=== PATIENT | male | born 1975 | race African-American/Black ===

== ENCOUNTER 2019-02-06 15:59 | Observation (INO) ==
[2019-02-06] MEDS ORDERED: ASPIRIN PR ONE (16:46)
[2019-02-06] MEDS ORDERED: ASPIRIN PO ONE (16:46)
--- NOTE | 2019-02-06 17:01 | EKG Report ---
Test Performed on : 02/06/2019 4:50:50 PM Test Reason : BP Blood Pressure : / mmHG Vent. Rate : 083 BPM Atrial Rate : 083 BPM P-R Int : 152 ms QRS Dur : 090 ms QT Int : 366 ms P-R-T Axes : 058 -30 044 degrees QTc Int : 430 ms Normal sinus rhythm. Left axis deviation Nonspecific T wave abnormality Abnormal ECG No previous ECGs available Unconfirmed Result
[2019-02-06 17:05] LABS: BASO# 0.01 X1000 (0.0-0.2); BASO% 0.2 % (0.0-0.8); EOS# 0.12 X1000 (0.0-0.7); EOS% 2.3 % (0.0-10.0); HEMATOCRIT 42.3 % (42.0-52.0); LYMPH# 1.32 X1000 (1.2-3.4); LYMPH% 25.3 % (20.5-51.1); MCH 30.6 PG (27-31); MCHC 35.5 g/dL (33-37); MCV 86.3 FL (81-99); MONO# 0.46 X1000 (0.11-0.59); MONO% 8.8 % (1.7-9.3); MPV 10.7 FL (7.4-10.4); NEUT% 63.4 % (42.2-75.2); PLT 199 X1000 (130-400); RDW 13.2 % (11.5-14.5); WBC 5.21 X1000 (4.8-10.8)
--- NOTE | 2019-02-06 17:05 | Diag Imaging Result Doc PS360 ---
EXAM: CHEST-2 VIEWS INDICATION: CP TECHNIQUE: 2 views COMPARISON: None. FINDINGS: The lungs are grossly clear. There is no discrete pleural fluid collection or pneumothorax. The cardiomediastinal silhouette and central vasculature are grossly unremarkable. IMPRESSION: No evidence of acute pathology by plain radiograph. Electronically signed by Yuriy Mora 02/06/2019 5:03 PM
[2019-02-06 17:21] LABS: AGAP 13; ALB/GLOB RATIO 1.6; ALBUMIN 4.3 g/dL (3.5-5.0); ALKALINE PHOSPHATASE 72 U/L (32-122); BUN 11 mg/dL (8-22); CALCIUM 9.2 mg/dL (8.8-10.2); CHLORIDE 100 mmol/L (98-107); COSMO 275; CREATININE 0.9 mg/dL (0.7-1.2); ESTIMATED GFR > 60; GLUCOSE 89 mg/dL (70-104); GOT 36 U/L (10-34); GPT 33 U/L (10-44); POTASSIUM 3.9 mmol/L (3.5-5.1); SODIUM 138 mmol/L (136-145); TCO2 25 mmol/L (25-35); TOTAL BILIRUBIN 0.72 mg/dL (0.20-1.00)
[2019-02-06 17:30] LABS: CK PROFILE 498 U/L (24-204)
[2019-02-06 17:47] LABS: CK INDEX 1.1 (0.0-2.5); CK-MB 5.37 ng/mL (0.0-5.0)
[2019-02-06 17:57] LABS: INR 1.72; PROTIME 20.6 Seconds (11.0-16.0)
[2019-02-06 17:58] LABS: PTT 25.6 Seconds (22.3-41.8)
--- NOTE | 2019-02-06 19:01 | ED EKG INTERP ---
This chart was entered by Yaquelin Zapata Scribe, acting as scribe for Gallo Rodriguez MD. EKG Interpretation - EKG Time of EKG reading by physician:: 17:10 EKG Read and Signed by:: Gallo Rodriguez EKG Interpretation (*Must complete 3 of following elements*): Abnormal (NSSTTWINSR LAD) Rate: 83 Rhythm: NSR [place]: normal (T) Attestation - Physician/ MELY Attestation The physician spent face to face time with patient:: No Advanced Practice Provider documentation review:: Supervising physician onsite and consulted in the evaluation and care of this patient. The physician did not have a face to face encounter with the patient. This chart was documented by the indicated scribe, (Yaquelin Zapata, Beryl) and accurately reflects the services I performed and decisions made by Jennifer malagon Kent A., MD, as attested by the provider's signature.
[2019-02-06] MEDS ORDERED: APRESOLINE IV ONE (20:19)
--- NOTE | 2019-02-06 20:26 | PROVIDER DOCUMENTATION ---
This chart was entered by Yaquelin Zapata Scribe, acting as scribe for Esequiel Ruvalcaba MD. HPI-Chest Pain - General Chief Complaint: B/P Problems Stated Complaint: BP HIGH Time Seen by Provider: 02/06/19 19:41 Source: patient Allergies/Adverse Reactions: Patient Allergies Allergy/AdvReac Type Severity Reaction Status Date / Time No Known Allergies Allergy Verified 09/11/13 01:02 Home Medications: Home Medication List Medication Instructions Recorded Confirmed Last Taken Type Cyclobenzaprine [Flexeril] 10 mg PO TID #10 tablet 07/09/16 Unknown Rx Famotidine [Pepcid] 20 mg PO DAILY #20 tablet 07/09/16 Unknown Rx Ketorolac [Toradol] 10 mg PO Q6H PRN PRN #20 tablet 07/09/16 Unknown Rx - History of Present Illness-CP Nature of Presenting Problem: pt is a 43 yr old male presenting with 1 month complaint of intermittent chest pain and shortness of breath. pt admits pain onset during moderate exertion, relieved with rest. pt denies ay prior cardiac hx. admits HTN and off meds x 1- 2yrs. pt seen at urgent care prior to arrival, sent here for further eval. pt denies any pain on exam Location: reports: central Chest Pain Radiation: reports: no radiation Quality of Pain: reports: pressure, sharp Severity in ED: moderate Onset/Duration: other (1 month) Timing: intermittent, getting worse Context/Activities at Onset: reports: moderate activity Modifying Factors: improves with: exercise (moderate activity induces chest pain), rest (relieves pain) Associated Symptoms: reports: shortness of breath. denies: diaphoresis, dizziness, fatigue, nausea, vomiting Nitro Today/Relief: no nitro taken today Aspirin Treatment Today: no aspirin today Prior Chest Pain/Cardiac Workup: reports: no prior chest pain, no prior cardiac workup Recently Seen Here or By Another Healthcare Provider: Yes (seen at urgent care [employer]) Review of Systems - Adult - REVIEW OF SYSTEMS - ADULT Constitutional: denies: fever, fatique Eyes: denies: blurred vision, double vision Ears, Nose, Mouth & Throat: reports: no symptoms reported Cardiovascular: reports: chest pain. denies: palpitations, syncope Respiratory: reports: dyspnea on exertion, shortness of breath. denies: cough Gastrointestinal: reports: frequent heartburn. denies: nausea, vomiting Genitourinary: reports: no symptoms reported Musculoskeletal: reports: no symptoms reported Integumentary: reports: no symptoms reported Neurological: denies: dizziness/vertigo, headache/migraines, syncope Psychiatric: reports: no symptoms reported Endocrine: reports: no symptoms reported Hematologic/Lymphatic: reports: no symptoms reported Allergic/Immunologic: reports: no symptoms reported All Other Systems: Reviewed and Negative Past History - Adult - PAST MEDICAL HISTORY-ADULT Review of Records: reports: Old Records Reviewed, Nursing Assessment Review, Medications Reviewed, Social history reviewed & non-contributory. Major Childhood Illnesses: reports: denies history Cardiovascular: reports: HTN, hyperlipidemia Respiratory: reports: denies history Gastrointestinal: reports: denies history Obstetrical/Gynecological: reports: denies history Genitourinary: reports: denies history Musculoskeletal: reports: denies history Neurological: reports: denies history Endocrine/Immune: reports: denies history Other Conditions: reports: denies history - PRIOR SURGERIES/PROCEDURES Surgical/Procedure History: reports: reviewed, not pertinent - PRIOR HOSPITALIZATIONS Prior Hospitalizations: reports: for other non-related - IMMUNIZATION STATUS Childhood Immunizations: See Nurse Assessment Flu Vaccine: See Nurse Assessment - FAMILY HISTORY Family History: reviewed, not pertinent - SOCIAL HISTORY Smoking: denies Substance Use: denies Living Situation: family Physical Exam-General - PHYSICAL EXAM-ADULT Initial Vital Signs Reviewed: Yes - CONSTITUTIONAL General Appearance: appears well, alert, no apparent distress - EYES Eyes: PERRL/EOMI - HEAD, EARS, NOSE, MOUTH & THROAT HENMT: normocephalic/atraumatic, moist mucous membranes - NECK Neck: non-tender, full range of motion, supple, normal inspection - RESPIRATORY Respiratory: chest non-tender, lungs clear, normal breath sounds - CARDIOVASCULAR Cardiovascular: normal peripheral pulses, regular rate, rhythm, no edema - GASTROINTESTINAL (ABDOMEN) Abdominal Exam: normal bowel sounds, non tender, soft - LYMPHATIC Lymphatic: no adenopathy - MUSCULOSKELETAL Back Exam: normal inspection, no CVA tenderness, no vertebral tenderness Extremity: normal range of motion, non-tender, normal gait, normal inspection - SKIN Integumentary: normal color, normal turgor, warm/dry - NEUROLOGIC Neurologic: grossly normal, no motor/sensory deficits - PSYCHIATRIC Psych/Mental Status: normal mood/affect Progress - PLAN OF CARE/RESULTS Progress/Plan/Lab Results: Vital Signs - 8 hr 12/04/19 16:19 Temperature 98.4 F Pulse Rate 88 Respiratory Rate 16 Blood Pressure 215/121 O2 Sat by Pulse Oximetry 97 Laboratory Results - last 24 hr 02/06/19 02/06/19 02/06/19 16:50 16:50 16:50 WBC 5.21 RBC 4.90 Hgb 15.0 Hct 42.3 MCV 86.3 MCH 30.6 MCHC 35.5 RDW Std Deviation 13.2 Plt Count 199 MPV 10.7 H Immature Gran % (Auto) 0.0 Neut % (Auto) 63.4 Lymph % (Auto) 25.3 [place] % (Auto) 8.8 Eos % (Auto) 2.3 Baso % (Auto) 0.2 Immature Gran # (Auto) 0.00 Neut # (Auto) 3.30 Lymph # (Auto) 1.32 [place] # (Auto) 0.46 Eos # (Auto) 0.12 Baso # (Auto) 0.01 PT INR PTT (Actin FS) Sodium 138 Potassium 3.9 Chloride 100 Carbon Dioxide 25 Anion Gap 13 BUN 11 Creatinine 0.9 Estimated GFR/1.73 m2 > 60 BUN/Creatinine Ratio 12 Glucose 89 Calculated Osmolality 275 Calcium 9.2 Total Bilirubin 0.72 AST 36 H ALT 33 Alkaline Phosphatase 72 Creatine Kinase 498 H Creatine Kinase Index 1.1 CK-MB (CK-2) 5.37 H Troponin T [id number] Pept 134 H Total Protein 7.0 Albumin 4.3 Globulin 2.7 Albumin/Globulin Ratio 1.6 02/06/19 02/06/19 16:50 16:50 WBC RBC Hgb Hct MCV MCH MCHC RDW Std Deviation Plt Count MPV Immature Gran % (Auto) Neut % (Auto) Lymph % (Auto) [place] % (Auto) Eos % (Auto) Baso % (Auto) Immature Gran # (Auto) Neut # (Auto) Lymph # (Auto) [place] # (Auto) Eos # (Auto) Baso # (Auto) PT 20.6 H INR 1.72 PTT (Actin FS) 25.6 Sodium Potassium Chloride Carbon Dioxide Anion Gap BUN Creatinine Estimated GFR/1.73 m2 BUN/Creatinine Ratio Glucose Calculated Osmolality Calcium Total Bilirubin AST ALT Alkaline Phosphatase Creatine Kinase Creatine Kinase Index CK-MB (CK-2) Troponin T < 0.010 [id number]-[id number] Pept Total Protein Albumin Globulin Albumin/Globulin Ratio Orders Category Date Time Status Cardiac Monitoring DIRECTED Care 02/06/19 16:46 Active Oxygen Therapy- ED Nursing DIRECTED Care 02/06/19 16:46 Active Saline Loc NOW Care 02/06/19 16:46 Active CHEST-2 VIEWS [RAD] Stat Exams 02/06/19 16:46 Completed CBC WITH ELECTRONIC DIFF [HEME] Stat Lab 02/06/19 16:50 Completed CK PROFILE [SP CHEM] Stat Lab 02/06/19 16:50 Completed COMPREHENSIVE METABOLIC PANEL [CHEM] Stat Lab 02/06/19 16:50 Completed PRO B-NATRIURETIC PEPTIDE Stat Lab 02/06/19 16:50 Completed PROTIME WITH INR [COAG] Stat Lab 02/06/19 16:50 Completed PTT [COAG] Stat Lab 02/06/19 16:50 Completed TROPONIN T Stat Lab 02/06/19 16:50 Completed Aspirin Med 02/06/19 16:46 Discontinued 300 mg [place] NOW ONE Aspirin Med 02/06/19 16:46 Discontinued 325 mg PO NOW ONE Hydralazine [Apresoline] Med 02/06/19 20:19 Discontinued 10 mg IV NOW ONE CP/SOB/Palp >45 yrs of Age Stat Oth 02/06/19 16:46 Ordered EKG [EKG] Stat Ther 02/06/19 16:46 Draft Result Diagrams: 02/06/19 16:50 02/06/19 16:50 - XRAY 1 XRAY Study: Chest Impression: Normal (Signed EXAM: CHEST-2 VIEWS INDICATION: CP TECHNIQUE: 2 views COMPARISON: None. FINDINGS: The lungs are grossly clear. There is no discrete pleural fluid collection or pneumothorax. The cardiomediastinal silhouette and central vasculature are grossly unremarkable. IMPRESSION: No evidence of acute pathology by plain radiograph. Electronically signed by Yuriy Mora 02/06/2019 5:03 PM 02/06/191702 Interpreting Physician: Yuriy Mora MD Dictated Date/Time: 02/06/191702 cc: Gallo Rodriguez MD; Meredith Kim MD) Departure - Departure Date of Disposition Decision: 02/06/19 Time of Disposition Decision: 20:24 DIAGNOSIS: Chest pain Qualifiers: Chest pain type: other chest pain Qualified Code(s): R07.89 - Other chest pain; R07.8 - Other chest pain Disposition: ADMITTED INPATIENT 09 Certified Medical Emergency: Emergent Condition: Stable Referrals and Follow-Ups: Meredith Kim MD [Primary Care Provider] - - Critical Care Note This patient required my direct & personal management of CC.: No Attestation - Physician/ MELY Attestation Patient care was provided by Advanced Practice Provider:: No The physician spent face to face time with patient:: Yes Advanced Practice Provider documentation review:: Supervising physician onsite and consulted in the evaluation and care of this patient. The physician did have a face to face encounter with the patient. This chart was documented by the indicated scribe, (Yaquelin Zapata Scribe) and accurately reflects the services I performed and decisions made by me, sEequiel Ruvalcaba MD, as attested by the provider's signature.
[2019-02-06] MEDS ORDERED: CATAPRES PO ONE (22:08)
[2019-02-07] MEDS ORDERED: LABETALOL IV ONE (01:35)
[2019-02-07] MEDS ORDERED: TYLENOL PO PRN (01:44)
[2019-02-07] MEDS ORDERED: ZOFRAN IV PRN (01:44)
[2019-02-07] MEDS ORDERED: ASPIRIN ONE (02:03)
[2019-02-07 02:58] LABS: CK-MB 3.86 ng/mL (0.0-5.0)
[2019-02-07] MEDS: LABETALOL IV PRN ×2 (03:45→11:05)
[2019-02-07 04:01] LABS: URINE SOURCE CLEAN CATCH
[2019-02-07 04:06] LABS: BILIRUBIN URINE NEGATIVE (NEGATIVE); BLOOD URINE NEGATIVE (NEGATIVE); COLOR YELLOW; GLUCOSE URINE NEGATIVE (NEGATIVE); KETONE URINE NEGATIVE (NEGATIVE); LEUKOCYTES URINE NEGATIVE (NEGATIVE); NITRITE URINE NEGATIVE (NEGATIVE); PH URINE 7.5; PROTEIN URINE 30 mg/dL (NEGATIVE); SP GRAVITY URINE 1.026; TURBIDITY URINE TURBID (CLEAR); UR EPITHELIAL CELLS <10 /HPF (<10); URINE BACTERIA NEGATIVE /HPF; URINE RBC <10 /HPF (<10); URINE WBC <10 /HPF (<10); UROBILINOGEN URINE 2 mg/dL (NORMAL)
[2019-02-07 04:15] LABS: UR AMPHETAMINES QUAL NONE DETECTED (NONE DETECT); UR BARBITUATES QUAL NONE DETECTED (NONE DETECT); UR BENZODIAZEPIN QUAL NONE DETECTED (NONE DETECT); UR CANNABINOIDS QUAL NONE DETECTED (NONE DETECT); UR COCAINE QUAL NONE DETECTED (NONE DETECT); UR METHADONE QUAL NONE DETECTED (NONE DETECT); UR OPIATES QUAL NONE DETECTED (NONE DETECT); UR OXYCODONE QUAL NONE DETECTED (NONE DETECT); UR PCP QUAL NONE DETECTED (NONE DETECT)
[2019-02-07 06:02] LABS: BASO# 0.01 X1000 (0.0-0.2); BASO% 0.2 % (0.0-0.8); EOS# 0.08 X1000 (0.0-0.7); EOS% 1.9 % (0.0-10.0); HEMATOCRIT 41.8 % (42.0-52.0); HEMOGLOBIN 14.6 g/dL (14.0-18.0); LYMPH# 1.31 X1000 (1.2-3.4); LYMPH% 30.3 % (20.5-51.1); MCH 30.5 PG (27-31); MCHC 34.9 g/dL (33-37); MCV 87.3 FL (81-99); MONO# 0.42 X1000 (0.11-0.59); MONO% 9.7 % (1.7-9.3); MPV 10.8 FL (7.4-10.4); NEUT% 57.9 % (42.2-75.2); PLT 193 X1000 (130-400); RBC 4.79 XMIL (4.7-6.1); RDW 13.3 % (11.5-14.5); WBC 4.32 X1000 (4.8-10.8)
[2019-02-07 06:03] LABS: INR 1.91; PROTIME 22.3 Seconds (11.0-16.0)
[2019-02-07 06:30] LABS: AGAP 13; BUN 13 mg/dL (8-22); CALCIUM 9.1 mg/dL (8.8-10.2); CHLORIDE 100 mmol/L (98-107); COSMO 277; ESTIMATED GFR > 60; GLUCOSE 94 mg/dL (70-104); POTASSIUM 3.6 mmol/L (3.5-5.1); SODIUM 139 mmol/L (136-145); TCO2 26 mmol/L (25-35)
--- NOTE | 2019-02-07 07:45 | EKG Report ---
Test Performed on : 02/07/2019 07:22:38 AM Test Reason : chest pain Blood Pressure : / mmHG Vent. Rate : 077 BPM Atrial Rate : 077 BPM P-R Int : 160 ms QRS Dur : 092 ms QT Int : 398 ms P-R-T Axes : 055 011 241 degrees QTc Int : 450 ms Normal sinus rhythm. Nonspecific T wave abnormality Abnormal ECG When compared with ECG of 06-FEB-2019 16:50, (Unconfirmed) No significant change was found Confirmed by Dmitriy CORLEY, [place] ([id number]) on 02/07/2019 8:40:12 AM
[2019-02-07] MEDS ORDERED: NORVASC PO SCH (09:00)
--- NOTE | 2019-02-07 09:53 | HISTORY AND PHYSICAL ---
PRIMARY CARE PROVIDER: Dr. Meredith Kim. DATE AND TIME: 02/06/2019 at 2315. CHIEF COMPLAINT: Chest pain. HISTORY OF PRESENT ILLNESS: Mr. Crowder is a 43-year-old male with a past medical history only reported high blood pressure. The patient for quite some time now, at least a couple years, has had long-standing uncontrolled high blood pressure. He states that he previously did take blood pressure medications 1 of which was lisinopril, though he cannot remember the name of the other medication. He states that he took his self off of these medicines a few years ago in attempt to try to treat his blood pressure with lifestyle modifications. The patient states that his blood pressure at time that it has been checked has been high like it was today in the 190s to 200s systolically and 100s to 110s diastolically. He reports that he does occasionally have some visual disturbances of blurry vision though he reports he is not having any at present. He is reporting a slight headache at this time. He also reports that now for approximately 1 month he has been having intermittent chest pain that onsets when he does anything strenuous. He states it will come on in the center of his chest and nonradiating. He does report it as a sharp type pain. He does report that it worsens with movement and gets better when he stops and rests and has reported associated symptoms of some dizziness at times as well as shortness of breath. Though he states that once he stops and rests these associated symptoms resolved as well. He denies any chest pain at present. He also denies any cough, abdominal pain, nausea, vomiting, or diarrhea. The patient denies any dysuria though has reported that he has been having some difficulty urinating, mainly that when he tries to urinate it is hard to get his urine flow started. Though he does report that he has been told he had a slightly enlarged prostate in the past. He denies any pain numbness tingling or swelling in extremities. Upon arrival to the ER, the patient's vital signs were temperature 98.4 degrees, heart rate 88, respirations 16, blood pressure is 215/121, oxygen saturation was 97% on room air. The patient's EKG showed normal sinus rhythm with a left axis deviation at a rate of 83 with a QTc of 430. Though his troponin was negative his CK enzymes were elevated. ProBNP was 134. During the course of the ER, the patient has been given over several hours initially hydralazine 10 mg IV, though this did not improve his blood pressure. We did give clonidine 0.2 mg p.o. Noted though this did not have much effect on his blood pressure as well. We have ordered lastly 20 mg of labetalol IV. We are awaiting to see how his response to this medication is. The patient will be admitted for further treatment evaluation of chest pain and uncontrolled hypertension. REVIEW OF SYSTEMS: A 14 point review of systems was conducted with the patient. All were negative except for pertinent positives mentioned above HPI. PAST MEDICAL HISTORY: Hypertension. PAST SURGICAL HISTORY: The patient denies any previous surgical history. SOCIAL HISTORY: The patient denies any past or present tobacco alcohol or illicit drug use. FAMILY HISTORY: Positive for his mother having a history of hypertension. He reports that his father is in good health. ALLERGIES: Patient has no known allergies. HOME MEDICATIONS: The patient denies any prescription medication use at this time. DIAGNOSTIC DATA/LABORATORY RESULTS: White blood cell count is 5210, hemoglobin 15, hematocrit 42.3, platelet count is 199,000. PTT 20.6, INR 1.72, PTT is 25.6. Sodium 138, potassium 3.9, chloride 100, serum bicarb is 25, BUN 11, creatinine 0.9, GFR greater than 60. Glucose 89, calcium 9.2. Liver function tests within normal limits except for AST is slightly elevated at 36. CK 498, CK index 1.1, CK-MB is 5.37. Troponin is less than 0.01. ProBNP is 134. EKG showed normal sinus rhythm with a left axis deviation, nonspecific T-wave abnormality at with a QTc of 430. Chest x-ray showed no evidence of acute pathology. This is per Radiology. PHYSICAL EXAMINATION: VITAL SIGNS: Temperature 98.4 degrees, heart rate 95, respirations 16, blood pressure is 194/129. Oxygen saturation is 99% on room air. GENERAL: Mr. Crowder is a very pleasant 43-year-old male who is resting in the ER stretcher. There was no acute distress noted. He was awake, alert, and able to answer questions appropriately. HEENT: Head is atraumatic, normocephalic. Pupils are equal, round, reactive to light, were 3 mm bilaterally and brisk. Oral mucosa is moist. Oropharynx is clear. NECK: Supple, trachea midline. CARDIOVASCULAR: Patient has S1-S2 present. No murmurs, gallops, rubs appreciated with a regular rate and rhythm. PULMONARY: Patient has symmetrical chest expansion bilaterally. Lung sounds clear to auscultation in bilateral full walker. ABDOMEN: Soft, nontender. Bowel sounds are present in all 4 quadrants, were normoactive. EXTREMITIES: No cyanosis or edema noted. Pulse, motor, and sensory are intact in all extremities. Radial and pedal pulses are 2+ bilaterally. INTEGUMENTARY: The patient's skin color is normal for his race, is dry and intact. NEUROLOGICAL: Patient is alert and oriented to person, place, time, and situation. He is able to move all extremities. There are no focal neurological deficits noted. ASSESSMENT AND PLAN: 1. Chest pain. The patient is not the patient is not reporting any chest pain at present though he has reported he has been having intermittent chest pain that does have an onset with strenuous activity and does resolve at rest. He reports it is in the center of his chest is nonradiating, sharp in nature and does have associated symptoms of dizziness, and shortness of breath with it. His initial CK enzymes were elevated and troponin was negative. We will continue with the series of cardiac enzymes. We will repeat EKG in the morning. We have also added on a echocardiogram as well. He did receive a 325 mg aspirin in the ER. We have placed a consult with Dr. Howell, cardiology will await his evaluation and further recommendations for management. 2. Uncontrolled hypertension. The patient has had uncontrolled hypertension for reported a couple of years per the patient. Given this we will decrease his blood pressure slowly. We will monitor him closely. He will be placed on the PVC unit. He will be on continuous cardiac telemetry with frequent vital signs. He did receive initially hydralazine 10 mg IV in the emergency room, it did not have much effect. He also did receive clonidine 0.2 mg p.o., but this did not improve his blood pressure either. We have ordered for him to get a dose of labetalol 20 mg IV. We will go ahead and place him with Norvasc 5 mg p.o. b.i.d. as well. We will place p.r.n. blood pressure medications also. 3. Deep venous thrombosis prophylaxis. We provided with sequential compression devices. The patient has been placed on the PVC unit for close monitoring. He will be NPO until evaluated by Cardiology. We will repeat a CBC, BMP, magnesium, and INR in the morning. We are awaiting a urinalysis and urine drug screen. Further orders and recommendations pending hospital course, diagnostic studies, and physician evaluation. Dictated by SARAHY Jennings for Isaiah Grayson MD I have performed a face to face diagnostic evaluation. Labs/ Xray- reviewed, Exam- Chest- clear, CV- regular. A/P- Chest Pain- Admit, cardiac work up, ASA, Cardiology consult. Dr. Grayson cc: Isaiah Grayson MD [facility]
[2019-02-07] MEDS ORDERED: LEXISCAN ONE (10:32)
[2019-02-07] MEDS ORDERED: HYDROCHLOROTHIAZIDE PO SCH (13:45)
[2019-02-07] MEDS ORDERED: ASPIRIN EC PO SCH (13:45)
[2019-02-07 13:58] LABS: CK INDEX 1.1 (0.0-2.5); CK-MB 3.35 ng/mL (0.0-5.0)
--- NOTE | 2019-02-07 13:58 | Diag Imaging Result Document ---
PROCEDURE NAME: MYOCARDIAL PERF SCAN, STR/REST - 02/07/2019 PROCEDURE: Lexiscan Cardiolite stress test. DESCRIPTION OF PROCEDURE IN DETAIL: Lexiscan was infused per standard protocol. There was no chest pain. Stress electrocardiogram was nondiagnostic. There were baseline nonspecific ST-T changes noted. The patient had baseline elevated blood pressure and subsequently blood pressure following Lexiscan infusion, was 187/103. Total of 20 mg of IV labetalol was also given. Total of 15.9 mCi of Cardiolite was injected for the rest phase; 45.3 mCi of Cardiolite was injected for the stress phase. Images revealed significant chest wall attenuation. In addition, there is diaphragmatic attenuation as well. There is severe grade, fixed defect in the mid and base inferior wall suggestive of scar. In addition, there is low-grade reversibility noted in the inferolateral wall associated with significant chest wall and diaphragmatic attenuation. The reversibility may be secondary to attenuation. Would recommend clinical correlation. Left ventricular ejection fraction was 66%. CONCLUSIONS: 1. No chest pain. 2. Nondiagnostic Lexiscan stress electrocardiogram. 3. Myocardial perfusion images revealed low-grade reversible defect in the base of the lateral wall inferiorly associated with significant chest wall attenuation. This could represent attenuation defect as well. Would recommend clinical correlation. 4. There is severe grade, fixed defect in the mid and base inferior wall suggestive of scar. Left ventricular ejection fraction by gated SPECT was 66%. cc: MD Thomas Brush MD
[2019-02-07] MEDS ORDERED: TOPROL XL PO SCH (14:30)
[2019-02-07] MEDS ORDERED: ALTACE PO SCH (14:30)
--- NOTE | 2019-02-07 15:23 | ECHO REPORT ---
ORDER DATE: 02/07/2019 INTERPRETING PHYSICIAN: Dr. Jacky Yates ECHOCARDIOGRAPHIC MEASUREMENTS: 1. Interventricular septum: 1.5 cm. 2. Posterior wall: 1.5 cm. 3. Diastolic diameter: 4.1 cm. 4. Left atrium: 3.5 cm. 5. Aortic root: 3.6 cm. SUMMARY OF THE 2-DIMENSIONAL IMAGIN. There is mild left atrial enlargement. 2. Normal left ventricular cavity size. Concentric left ventricular hypertrophy. Estimated ejection fraction of 65%. There is grade 1 diastolic dysfunction. 3. Aortic valve leaflets are trileaflet. 4. Mitral valve was normal. 5. Tricuspid valve was normal. 6. Pulmonic valve was normal. 7. There is mild mitral regurgitation. 8. Mild tricuspid regurgitation. Peak velocity across the tricuspid valve was 1.6 m/sec. 9. Peak velocity across the aortic valve less than 2 m/sec. There is no aortic stenosis or regurgitation. 10. There is no pericardial effusion or obvious intracardiac mass or thrombus seen. cc: Jacky Yates MD
[2019-02-07] MEDS ORDERED: APRESOLINE IV ONE (17:59)
--- NOTE | 2019-02-07 18:00 | PROGRESS NOTE ---
DATE: 02/07/2019 SUBJECTIVE: The patient has no major complaints. OBJECTIVE: Blood pressure 167/100, heart rate 76, respiratory rate 16, temperature 98.6 degrees, 96% on room air. Cardiovascular: Regular rate and rhythm. Pulmonary: Bilateral breath sounds. Clear to auscultation. Gastrointestinal: Soft, nontender, nondistended. Bowel sounds are positive. LABORATORY DATA: White count 4, hemoglobin and hematocrit stable currently platelet 193,000. Troponins negative. PROBLEM LIST: 1. Chest pain. We will continue to follow. Dr. Camp has evaluated. Patient's stress test is pending. The patient is currently stable. 2. Uncontrolled hypertension. He is on Norvasc. I am going to start hydrochlorothiazide and follow, but apparently his blood pressure has been not controlled for an extended period of time. 3. Disposition. Pending clinical status. We will continue to monitor. If his stress test is negative, blood pressure is more acceptable, I think we can probably get him home later today. cc: Andrew Dean MD MTDD
[2019-02-07 18:40] VITALS: BP 141/90
[2019-02-07] MEDS ORDERED: CRESTOR PO SCH (21:00)
--- NOTE | 2019-02-07 21:56 | CARDIOLOGY CONSULTATION ---
DATE: 02/07/2019 REASON FOR CONSULTATION: Chest pain. HISTORY: Mr. Crowder is a 43-year-old, black gentleman, who normally follows with Dr. Haris Rolon at Dr. Kim's practice. The patient states that for the past month or so, he has been having some intermittent episodes of exertional chest discomfort. This is sort of random, does not last too long. He was just concerned about it and decided to come in for evaluation. The patient states that he is not short of breath. He does not feel palpitations or syncope. No edema. PAST HISTORY: Positive for hypertension, however, he has not been compliant with a regimen. SURGICAL HISTORY: He has had phimosis operated. SOCIAL HISTORY: He is single, has no children. He lives with his mother. He has been working second shift at [employer] for the past month or so. Before that, he was working at [employer]. FAMILY HISTORY: Mother has hypertension. ALLERGIES: Negative. MEDICATIONS: He is taking none. REVIEW OF SYSTEMS: According to his mother, he does snore quite a bit and he acknowledges that. He is also obese with a body mass index of 35.2. PHYSICAL EXAMINATION: Today, blood pressure 167/100, pulse is 83, respirations 14, temperature 97.8 degrees. He is awake, alert, oriented, in no distress. He weighs 230 pounds.HEENT: Unremarkable. Chest: Sounds clear to auscultation and percussion. Heart sounds are regular and rhythmic. No gallop or murmur. Abdomen: Nontender, soft. No masses. No hepatomegaly. Extremities: Good pulses. No peripheral edema. Neurologic: Follows commands. Moves all 4 extremities. LABORATORY AND DIAGNOSTIC DATA: Sodium 139, potassium is 3.6, chloride 100, BUN is 13, creatinine 1.0. His troponins have been checked a total of 3 times, at 4:50 p.m. yesterday, 1:55 this morning, and 12:15 p.m. Three troponins are negative. His EKG shows a nonspecific T-wave abnormality. His echocardiogram shows excellent LV function with a mild degree of concentric LVH. Myocardial perfusion stress test has already been completed. EKG shows nonspecific changes. His perfusion reveals a low-grade reversible defect in the basal lateral wall associated with significant chest wall attenuation. This may represent attenuation versus ischemia. There is a limited area of myocardium. IMPRESSION: 1. Patient presented with chest pain, question of angina pectoris. 2. Uncontrolled hypertension. 3. Medically noncompliant. 4. Hyperlipidemia. His lipid panel checked today shows LDL level is 168, total cholesterol 216, HDL is 46. 5. Obesity. Body mass index is 35.2. 6. Suspected sleep apnea syndrome. RECOMMENDATIONS: At this time, the patient is advised to pursue a healthy lifestyle, aggressive medical therapy. We will initiate medications including metoprolol-XL 50 mg once a day plus ramipril 10 mg daily, and he will take baby aspirin every day, low-dose amlodipine 5 mg, and he will follow up with me at the office. I have instructed him to monitor his blood pressure twice a day. Because of his elevated LDL cholesterol and his abnormal stress test, I am recommending Crestor 40 mg daily. He will follow also with his primary doctor, Haris Rolon. Thank you for the opportunity to participate in his evaluation. cc: MD Haris Loera MD
[2019-02-08] MEDS ORDERED: NORVASC PO SCH (09:00)
--- NOTE | 2019-03-16 23:18 | DISCHARGE SUMMARY ---
ADMISSION DATE: 02/06/2019 DISCHARGE DATE: 02/07/2019 DISCHARGE DIAGNOSES: 1. Chest pain. 2. Uncontrolled hypertension. PROCEDURES: None. CONSULTATIONS: Dr. Howell. HISTORY: This is a 44-year-old male admitted on the for chest pain and he also had malignant blood pressure. He had serial enzymes that were negative. Blood pressure was managed with clonidine, labetalol, hydralazine, Norvasc. Echocardiogram was obtained which showed an EF of 65% but right grade 1 diastolic dysfunction. Myocardial perfusion scan was obtained, which showed low-grade reversible defect which was chest wall attenuation, large severe grade fixed defect which was suggestive of scar. Cardiology was consulted and they felt that the patient was stable after workup with aggressive medical therapy, metoprolol, ramipril, aspirin, amlodipine and follow up with him in the office and Crestor 40 daily. DISCHARGE MEDICATIONS: Altace 10 daily, aspirin 81 daily, Norvasc 5 daily, Toprol-XL and then he will follow up with Dr. Howell. TIME SPENT: 32 minute discharge. cc: Andrew Dean MD MTDD
== END 2019-02-07 19:00 | disposition home or self-care (01) | DRG 311 ==
LOC: ED 15:59 → INTOOBSV 16:00 → EDIPHOLD 02-07 01:36 → SUATTDRO 02-07 01:36 → 2N 02-07 01:51
PROVIDERS: ATTEND Internal Medicine

== ENCOUNTER 2019-06-07 22:09 | Inpatient (IN) ==
[2019-06-07] MEDS ORDERED: ASPIRIN ONE (22:29)
[2019-06-07] MEDS ORDERED: ASPIRIN PO ONE (23:00)
[2019-06-07 23:10] LABS: URINE SOURCE CLEAN CATCH
[2019-06-07 23:12] LABS: BASO# 0.01 X1000 (0.0-0.2); BASO% 0.2 % (0.0-0.8); EOS# 0.17 X1000 (0.0-0.7); EOS% 3.5 % (0.0-10.0); HEMATOCRIT 40.3 % (42.0-52.0); HEMOGLOBIN 14.1 g/dL (14.0-18.0); LYMPH# 1.96 X1000 (1.2-3.4); LYMPH% 40.5 % (20.5-51.1); MCH 29.7 PG (27-31); MONO# 0.63 X1000 (0.11-0.59); MPV 10.5 FL (7.4-10.4); NEUT# 2.07 X1000 (1.4-6.5); NEUT% 42.8 % (42.2-75.2); PLT 205 X1000 (130-400); RBC 4.74 XMIL (4.7-6.1); RDW 13.5 % (11.5-14.5); WBC 4.84 X1000 (4.8-10.8)
[2019-06-07 23:14] LABS: BILIRUBIN URINE NEGATIVE (NEGATIVE); BLOOD URINE NEGATIVE (NEGATIVE); COLOR YELLOW; GLUCOSE URINE NEGATIVE (NEGATIVE); KETONE URINE NEGATIVE (NEGATIVE); LEUKOCYTES URINE NEGATIVE (NEGATIVE); NITRITE URINE NEGATIVE (NEGATIVE); PROTEIN URINE TRACE mg/dL (NEGATIVE); SP GRAVITY URINE 1.026; TURBIDITY URINE CLEAR (CLEAR); UR EPITHELIAL CELLS <10 /HPF (<10); URINE BACTERIA NEGATIVE /HPF; URINE RBC <10 /HPF (<10); URINE WBC <10 /HPF (<10); UROBILINOGEN URINE 2 mg/dL (NORMAL)
[2019-06-07 23:23] LABS: UR AMPHETAMINES QUAL NONE DETECTED (NONE DETECT); UR BARBITUATES QUAL NONE DETECTED (NONE DETECT); UR BENZODIAZEPIN QUAL NONE DETECTED (NONE DETECT); UR CANNABINOIDS QUAL NONE DETECTED (NONE DETECT); UR COCAINE QUAL NONE DETECTED (NONE DETECT); UR METHADONE QUAL NONE DETECTED (NONE DETECT); UR OPIATES QUAL NONE DETECTED (NONE DETECT); UR OXYCODONE QUAL NONE DETECTED (NONE DETECT); UR PCP QUAL NONE DETECTED (NONE DETECT)
[2019-06-07 23:39] LABS: AGAP 11; ALB/GLOB RATIO 1.8; ALBUMIN 4.5 g/dL (3.5-5.0); ALKALINE PHOSPHATASE 70 U/L (32-122); BUN 9 mg/dL (8-22); CALCIUM 9.4 mg/dL (8.8-10.2); CHLORIDE 102 mmol/L (98-107); COSMO 276; ESTIMATED GFR > 60; GLUCOSE 89 mg/dL (70-104); GOT 28 U/L (10-34); GPT 23 U/L (10-44); POTASSIUM 3.8 mmol/L (3.5-5.1); SODIUM 139 mmol/L (136-145); TCO2 26 mmol/L (25-35); TOTAL BILIRUBIN 0.75 mg/dL (0.20-1.00)
[2019-06-07 23:46] LABS: CK PROFILE 919 U/L (24-204)
[2019-06-08 00:25] LABS: CK-MB 8.88 ng/mL (0.0-5.0)
[2019-06-08 05:46] LABS: BASO# 0.06 X1000 (0.0-0.2); BASO% 1.4 % (0.0-0.8); EOS# 0.18 X1000 (0.0-0.7); EOS% 4.1 % (0.0-10.0); HEMATOCRIT 41.5 % (42.0-52.0); HEMOGLOBIN 14.4 g/dL (14.0-18.0); LYMPH# 2.22 X1000 (1.2-3.4); LYMPH% 50.3 % (20.5-51.1); MCH 29.2 PG (27-31); MCHC 34.7 g/dL (33-37); MCV 84.2 FL (81-99); MONO# 0.39 X1000 (0.11-0.59); MONO% 8.8 % (1.7-9.3); MPV 10.2 FL (7.4-10.4); NEUT# 1.56 X1000 (1.4-6.5); NEUT% 35.4 % (42.2-75.2); PLT 200 X1000 (130-400); RBC 4.93 XMIL (4.7-6.1); RDW 13.3 % (11.5-14.5); WBC 4.41 X1000 (4.8-10.8)
[2019-06-08] MEDS ORDERED: TYLENOL PO PRN (05:53)
[2019-06-08] MEDS ORDERED: ZOFRAN IV PRN (05:53)
[2019-06-08 06:12] LABS: AGAP 13; BUN 8 mg/dL (8-22); CALCIUM 9.3 mg/dL (8.8-10.2); CHLORIDE 102 mmol/L (98-107); COSMO 274; ESTIMATED GFR > 60; GLUCOSE 94 mg/dL (70-104); MAGNESIUM 2.1 mg/dL (1.5-2.7); POTASSIUM 3.7 mmol/L (3.5-5.1); SODIUM 138 mmol/L (136-145); TCO2 23 mmol/L (25-35)
[2019-06-08 06:24] LABS: CK INDEX 0.9 (0.0-2.5); CK-MB 6.81 ng/mL (0.0-5.0)
--- NOTE | 2019-06-08 06:57 | Diag Imaging Result Doc PS360 ---
CHEST-1 VIEW - 06/07/2019 INDICATION: CP COMPARISON: 02/06/2019 FINDINGS: The lungs are normally expanded and clear. Heart size and mediastinal contours are normal. No pneumothorax or pleural effusion. IMPRESSION: Negative exam. Electronically signed by Luis Manuel Galarza 06/08/2019 6:55 AM
--- NOTE | 2019-06-08 07:34 | EKG Report ---
Test Performed on : 06/08/2019 06:35:48 AM Test Reason : chest pain Blood Pressure : / mmHG Vent. Rate : 054 BPM Atrial Rate : 054 BPM P-R Int : 172 ms QRS Dur : 094 ms QT Int : 432 ms P-R-T Axes : 047 039 023 degrees QTc Int : 409 ms Sinus bradycardia. Otherwise normal ECG When compared with ECG of 07-JUN-2019 22:15, (Unconfirmed) No significant change was found Confirmed by Lisa CORLEY, Ken Sifuentes ([id number]) on 06/11/2019 9:39:07 AM
--- NOTE | 2019-06-08 07:58 | HISTORY AND PHYSICAL ---
ADDENDUM REPORT: This is an addendum to the nurse practitioner's History and Physical notes. CHIEF COMPLAINT: Chest pain. HISTORY OF PRESENTING COMPLAINT: The patient is a 44-year-old with a history of hypertension and hyperlipidemia who presents with exertional chest pain that is not pleuritic, not associated with food, and nonradiating as well. Of note, the patient had a stress test 3 months ago where reversible ischemia was found. Cardiology was on board at the time and opted for medical management for the patient. The patient describes compliance with the medications including aspirin, statin, metoprolol, and other medication that was recommended at the time of the cardiology consult. No cardiac cath was done at that time. The patient still endorses exertional chest pain and shortness of breath which is relieved with rest. The patient has not been on nitroglycerin to asses if chest pressure is relieved with nitroglycerin. Given the continuous chest pain which sounds cardiac in description we will admit the patient, trend troponin. There is no benefit for any additional stress test at this time I will consult Cardiology to reevaluate the patient and decide if they want to do a cardiac cath at this time or not. Counseled the patient on the need to continue appropriate medications. Blood pressure was mildly elevated at the time of seeing the patient so the patient may need up titration of his blood pressure medications as well before discharge as his blood pressure according to the patient runs in the 140s to 150s SBP at home. There is also the possibility that the blood pressure may also be playing a factor in the patient's chest pain but we will await Cardiology's recommendation on what to do given the positive stress test that was done 3 months ago. CODE STATUS: Full code. DISPOSITION: We will discharge when medically stable after Cardiology clearance and DVT prophylaxis with Lovenox. I agree with the nurse practitioner's History and Physical and documentation and orders as well. [facility]
[2019-06-08] MEDS: ASPIRIN EC PO SCH ×2 (08:30→08:39)
[2019-06-08] MEDS: TOPROL XL PO SCH (08:30)
[2019-06-08] MEDS: ALTACE PO SCH (08:30)
[2019-06-08] MEDS ORDERED: NORVASC PO SCH (09:00)
--- NOTE | 2019-06-08 10:47 | HISTORY AND PHYSICAL ---
PRIMARY CARE PROVIDER: Dr. Meredith Kim. PATIENT'S PERFORMANCE CONSULTANT: Dr. Howell. CHIEF COMPLAINT: Chest pain. HISTORY OF PRESENT ILLNESS: Mr. Crowder is a 44-year-old male, who presented to the ER [facility] with complaints of chest pain that began on at approximately 1 p.m. The patient states that the chest pain is intermittent. It is right in the center of his chest. It is a tightness type pain in nature. He denies any radiation of the pain, but he reports associated shortness of breath and a feeling of indigestion. He reports that since his chest pain started at 1, he has had approximately 2 to 3 episodes which do occur with exertion. The patient denies any chest pain at present. He was recently admitted in February 2019 for chest pain and uncontrolled hypertension. During this admission, he did have echocardiogram which did show an EF of 65% and a right grade 1 diastolic dysfunction. He also had a myocardial perfusion scan which was obtained and showed a low-grade reversible defect which was chest wall attenuation, large severe grade fixed defect, which was suggestive of a scar. Cardiology was consulted. They felt the patient was stable after his cardiac workup and treatment with aggressive medical therapy, which included medications of metoprolol, ramipril, aspirin, amlodipine, as well as Crestor. He was to follow up with Dr. Howell outpatient. The patient states that he has seen Dr. Howell since he was discharged in February. He denies any headache, dizziness, feeling lightheaded, near syncopal or syncopal episodes. He denies any cough. He denies any fever, body aches or chills. He denies any nausea, vomiting or diarrhea. He denies any constipation, hematochezia or melena. He denies any dysuria or urinary frequency. He denies any pain, numbness, tingling or swelling in extremities. Upon evaluation in the ER, the patient did have elevated CK level at 919. The troponin was within normal limits at 8. All other labs were pretty unremarkable. EKG showed normal sinus rhythm at a rate of 63. The patient was given a 325 mg aspirin. He has been placed inpatient for admission. The patient denied any recent travel or illnesses. He also denied any known contact with sick individuals or individuals who have flu or upper respiratory symptoms. He also denies any known contact with any individual who has had suspected COVID-19 exposure or diagnosis. He denies any recent travel. REVIEW OF SYSTEMS: A 14 point review of systems was conducted with the patient and all were negative, except for pertinent positives mentioned above in HPI. PAST MEDICAL HISTORY: Hypertension and hyperlipidemia. PAST SURGICAL HISTORY: The patient denies any previous surgical history. SOCIAL HISTORY: The patient denies any past or present tobacco, alcohol or illicit drug use. FAMILY HISTORY: Positive for his mother having a history of hypertension. His father does not have any known medical history; he is reported to be in good health. ALLERGIES: Patient has no known allergies. HOME MEDICATIONS: 1. Norvasc 5 mg p.o. daily. 2. Aspirin 81 mg p.o. daily. 3. Toprol-XL 50 mg p.o. daily. 4. Altace 5 mg p.o. daily. 5. Crestor 40 mg p.o. daily. DIAGNOSTIC DATA/LABORATORY RESULTS: White blood cell count is 4840, hemoglobin 14.1, hematocrit 40.3, platelet count is 205. Sodium 139, potassium 3.8, chloride 102, serum bicarbonate 26. BUN 9, creatinine 1, with a GFR 60, glucose 89, calcium 9.4, magnesium 2. Liver function tests within normal limits. CK 919, CK index 1, CK-MB 8.8. Troponin-T high sensitivity is 8. Urinalysis was obtained via clean catch, was positive for trace protein and was negative for glucose, ketones, blood, nitrites, leukocytes, white blood cells or bacteria. Urine drug screen was negative. EKG showed normal sinus rhythm at a rate of 63. Chest x-ray showed no acute abnormality. The lungs were normally expanded and clear. The heart size and mediastinal contours are normal. There is no pneumothorax or pleural effusion noted. This is per Radiology. PHYSICAL EXAMINATION: VITAL SIGNS: Temperature 97.8 degrees, heart rate 83, respirations 18, blood pressure is 168/109, oxygen saturation is 98% on room air. GENERAL: Mr. Crowder is a pleasant 44-year-old male, who is resting in the ER stretcher. He was in no acute distress. He was awake, alert, and able to answer questions appropriately. HEENT: Head is atraumatic, normocephalic. Pupils are equal, round, reactive to light, were 3 mm bilaterally and brisk. Oral mucosa is moist. Oropharynx is clear. NECK: Supple. Trachea midline. CARDIOVASCULAR: Patient has S1, S2 present. No murmurs, gallops, rubs appreciated with a regular rate and rhythm. PULMONARY: Patient has symmetrical chest expansion bilaterally. Lung sounds are clear to auscultation in bilateral full walker. ABDOMEN: Soft, nontender, nondistended. Bowel sounds are present in all 4 quadrants, were normoactive. EXTREMITIES: No cyanosis or edema noted. Pulse, motor, and sensory were intact in all extremities. Radial and pedal pulses were 2+ bilaterally. INTEGUMENTARY: The patient's skin color is normal for his race, is dry and intact. NEUROLOGICAL: Patient is alert and oriented to person, place, time and situation. He is able to move all extremities. There were no focal neurological deficits noted. ASSESSMENT AND PLAN: 1. Chest pain. Rule out acute coronary syndrome. For further evaluation, we will continue with the series of cardiac enzymes. We will repeat electrocardiogram in the morning. The patient was just previously admitted in January 2019 and did receive echocardiogram and myocardial perfusion scan. Given this, we will not repeat these studies at this time. We will await Cardiology's evaluation in the morning and their further recommendations for management. We will continue the patient's regularly prescribed medications which include daily aspirin, Norvasc, Toprol-XL, Altace and Crestor. He did receive 325 mg aspirin orally upon arrival to the emergency room. He will be placed on continuous cardiac telemetry with frequent vital signs. He will be placed on nothing by mouth until evaluated by Cardiology. We will await their evaluation and continue to follow. 2. Hypertension. We will continue the patient's antihypertensive medications as mentioned above in #1. 3. Hyperlipidemia. We will continue his Crestor. 4. Deep vein thrombosis prophylaxis provided with sequential compression devices. The patient has been placed on the medical floor for telemetry. He will have vital signs q. 4 hours. Do strict intake and output. We will repeat a CBC, CMP and magnesium in the morning. We will also continue with the series of cardiac enzymes. Further orders and recommendations pending hospital course, diagnostic studies, and physician evaluation. Dictated by SARAHY Jennings for Eric Escobar MD
[2019-06-08 14:18] LABS: CK INDEX 0.9 (0.0-2.5); CK-MB 6.2 ng/mL (0.0-5.0)
--- NOTE | 2019-06-08 15:11 | PROGRESS NOTE ---
DATE: 06/08/2019 SUBJECTIVE: The patient is resting comfortably in bed. He is not complaining of chest pain. He was admitted during the night due to chest pain. He had a stress test done on 02/07/2019 that did not show any acute abnormality. Cardiology Department has been consulted. I will wait for recommendations. Probably this patient can be discharged soon if we are not going to do any more procedures. OBJECTIVE: Vital Signs: Temperature 98.1 degrees, pulse 57, respiratory rate 18, blood pressure 149/97, oxygen saturation 96% on room air. HEENT: Head normocephalic, no trauma. PERRLA. Neck: Supple. No JVD. No masses. Central trachea. Chest: Clear to auscultation. No wheezing. No rales. Abdomen: Soft, protuberant, nontender, nondistended. No hepatosplenomegaly. Extremities: No edema, no clubbing, no cyanosis. Neurological: The patient is awake, alert. He is oriented x3. No focal deficits. LABORATORY: WBC 4.1, hemoglobin 14.4, hematocrit 41.5, platelets 200,000. Sodium 138, potassium 3.7, chloride 102, bicarbonate 23, BUN 8, creatinine 1.0, glucose 94, calcium 9.3, magnesium 2.1. CK 672, high sensitive troponin negative x3, CK-MB 6.2. ASSESSMENT AND PLAN: 1. Chest pain. He had a stress test done 3 months ago and was basically negative. Cardiology Department has been consulted. At this moment, this patient's chest pain is not present. I will wait for recommendations. 2. Hypertension. Continue with the same regimen. 3. Hyperlipidemia. Continue with Crestor. 4. Deep vein thrombosis prophylaxis with sequential compression devices for now. 5. Likely sleep apnea. This patient needs to be seen by a sleep doctor as an outpatient. 6. Obesity with a body mass index of 36. Aware. cc: Dimitris Hull MD
--- NOTE | 2019-06-08 15:57 | CARDIOLOGY CONSULTATION ---
DATE: 06/07/2019 CHIEF COMPLAINT: Chest pain. HISTORY OF PRESENT ILLNESS: Mr. Crowder is a 44-year-old black male with a history of hypertension, hyperlipidemia, who presented for evaluation of chest pain. This has been going on intermittently over the last 2 to 3 days. They are occur with exertion, feels like a pressure sensation in his mid chest, lasts for a few minutes until he stops to rest. He has some associated shortness of breath. He denies any other associated symptoms such as nausea or vomiting. PAST MEDICAL HISTORY: 1. Hypertension. 2. Hyperlipidemia. 3. Previous bouts of chest pain. This was evaluated with a myocardial perfusion scan in February 2019 showing a reversible defect in the base of the lateral wall with a significant chest attenuation. Ejection fraction of 66%. SOCIAL HISTORY: No tobacco, alcohol, or illicit drugs. FAMILY HISTORY: Hypertension. REVIEW OF SYSTEMS: A 10 system review of systems is negative except for those mentioned in the HPI. PHYSICAL EXAMINATION: Vital signs: Afebrile. Heart rate 59, blood pressure is 153/96. General: He is in no acute distress. HEENT: Oropharynx is moist. He has normal dentition. His eye examination shows pink conjunctivae, white sclerae. Neck: Examination shows no obvious thyromegaly or thyroid tenderness. Cardiovascular: He sounds to be in a regular rate and rhythm. He has no obvious murmurs. He has no S3. He has no lower extremity edema. Chest: Clear bilaterally. He has no increased work of breathing. Abdomen: Soft, nontender, nondistended. He has no obvious organomegaly. Skin: Warm and dry throughout without any rashes. Neurological: Moving all extremities well. He has no lateralizing deficits. PERTINENT DATA: His electrocardiographic tracing on presentation demonstrates a sinus rhythm, no ischemic changes, rate of 54 beats per minute. His chest x-ray demonstrated a normal exam. His labs show a white count of 4.4, hematocrit 41, his platelet count is 200,000. His sodium is 138, potassium is 3.7, BUN 8, creatinine is 1.0. His cardiac enzymes are negative thus far. ASSESSMENT: Mr. Crowder is a 44-year-old male who presented with chest pain with exertion. PLAN: Nuclear perfusion scanning in February did not clearly show ischemic changes. He was discharged with medical therapy. On review of Dr. Howell's notes, it recommended consideration of CTA or heart catheterization if continued bouts. Considering this, we will escalate his amlodipine to 10 mg daily and plan on performing a heart catheterization on Monday. cc: Blue Marshall MD
[2019-06-08] MEDS: CRESTOR PO SCH (20:04)
[2019-06-09] MEDS: NORVASC PO SCH (08:41)
[2019-06-09] MEDS: ASPIRIN EC PO SCH (08:42)
[2019-06-09] MEDS: TOPROL XL PO SCH (08:42)
[2019-06-09] MEDS: ALTACE PO SCH (08:42)
--- NOTE | 2019-06-09 13:55 | PROGRESS NOTE ---
DATE: 06/09/2019 SUBJECTIVE: The patient is resting comfortably in bed. No acute events overnight. No chest pain at this moment. Tomorrow hopefully he will have a cardiac cath done. OBJECTIVE: Vital Signs: Temperature 98.6 degrees, pulse 66, respiratory rate 16, blood pressure 151/90, oxygen saturation 100% on room air. HEENT: Head normocephalic. No trauma. PERRLA. Neck: Supple. No JVD. No masses. Central trachea. Chest: Clear to auscultation. Cardiovascular: RRR. Abdomen: Soft. Extremities: No edema, no clubbing, no cyanosis. Neurological: Awake, alert, oriented. LABORATORY: No lab work done today. ASSESSMENT AND PLAN: 1. Chest pain. A stress test done 3 months ago did not show any acute abnormality, but since he is still having pain, he will have a cardiac cath done tomorrow hopefully. 2. Hypertension. Continue same regimen. 3. Hyperlipidemia. Continue with Crestor. 4. Deep vein thrombosis prophylaxis with sequential compression devices. 5. Likely sleep apnea. This patient needs to be seen by a sleep doctor as an outpatient. 6. Obesity with a body mass index of 36. Aware. cc: Dimitris Hull MD
--- NOTE | 2019-06-09 15:04 | CARDIOLOGY PROGRESS NOTE ---
DATE: 06/09/2019 SUBJECTIVE: The patient had an episode of chest pain that was occurring at rest this morning. PHYSICAL EXAMINATION: Afebrile. Heart rate 66. Blood pressure 151/90. General: He is no acute distress. Cardiovascular: He sounds to be in a regular rate and rhythm. I do not hear any obvious murmurs. He has no S3. He has no lower extremity edema. Chest Examination: Clear bilaterally. No increased work of breathing. Abdomen: Soft, nontender. PERTINENT DATA: His white count is 4.4, hematocrit is 41, platelet count is 200,000. BUN and creatinine are 8 and 1.0. Cardiac enzymes have remained negative. His electrocardiogram on the , tracing reviewed by me demonstrates sinus bradycardia. ASSESSMENT: Mr. Crowder is a 44-year-old gentleman who has had episodes of exertional chest pain. He had a nuclear scan that demonstrated defects on it back in February of 2019. PLAN: I have escalated his Altace. We will plan on cardiac catheterization in the morning. Risks, benefits, and alternatives have been explained to the patient and he agrees to proceed. Laboratories have been ordered. cc: Blue Marshall MD
[2019-06-09] MEDS: CRESTOR PO SCH (20:39)
[2019-06-10 06:10] LABS: BASO# 0.02 X1000 (0.0-0.2); BASO% 0.4 % (0.0-0.8); EOS# 0.15 X1000 (0.0-0.7); HEMATOCRIT 42.1 % (42.0-52.0); HEMOGLOBIN 14.6 g/dL (14.0-18.0); LYMPH# 2.01 X1000 (1.2-3.4); LYMPH% 40.4 % (20.5-51.1); MCH 29.4 PG (27-31); MCHC 34.7 g/dL (33-37); MCV 84.7 FL (81-99); MONO# 0.53 X1000 (0.11-0.59); MONO% 10.6 % (1.7-9.3); MPV 10.4 FL (7.4-10.4); NEUT# 2.27 X1000 (1.4-6.5); NEUT% 45.6 % (42.2-75.2); PLT 219 X1000 (130-400); RBC 4.97 XMIL (4.7-6.1); RDW 13.5 % (11.5-14.5); WBC 4.98 X1000 (4.8-10.8)
[2019-06-10 06:23] LABS: INR 2.12; PROTIME 24.2 Seconds (11.0-16.0)
[2019-06-10 06:37] LABS: AGAP 8; BUN 14 mg/dL (8-22); CALCIUM 9.3 mg/dL (8.8-10.2); CHLORIDE 102 mmol/L (98-107); COSMO 276; CREATININE 1.1 mg/dL (0.7-1.2); ESTIMATED GFR > 60; GLUCOSE 102 mg/dL (70-104); POTASSIUM 3.9 mmol/L (3.5-5.1); SODIUM 138 mmol/L (136-145); TCO2 28 mmol/L (25-35)
--- NOTE | 2019-06-10 08:00 | EKG Report ---
Test Performed on : 06/07/2019 10:15:44 PM Test Reason : ED. NO EKG ORDER FOR MUSE Blood Pressure : / mmHG Vent. Rate : 063 BPM Atrial Rate : 063 BPM P-R Int : 168 ms QRS Dur : 096 ms QT Int : 398 ms P-R-T Axes : 050 014 017 degrees QTc Int : 407 ms Normal sinus rhythm. Normal ECG When compared with ECG of 07-FEB-2019 07:22, T wave inversion less evident in Inferior leads Unconfirmed Result
[2019-06-10] MEDS: ALTACE PO SCH (08:11)
[2019-06-10] MEDS: TOPROL XL PO SCH (08:12)
[2019-06-10] MEDS: NORVASC PO SCH (08:12)
[2019-06-10] MEDS: ASPIRIN EC PO SCH (08:12)
[2019-06-10 08:32] LABS: INR 2.1; PROTIME 24.1 Seconds (11.0-16.0)
[2019-06-10] MEDS ORDERED: VITAMIN K 10 MG in NS 50 ML IV ONE (09:03)
[2019-06-10 11:34] LABS: INR 2.24; PROTIME 25.4 Seconds (11.0-16.0)
[2019-06-10] MEDS ORDERED: HEPARIN 1000 UNITS/NS 2,000 UNIT/1,000 ML IV.SOLN ONE (11:34)
[2019-06-10] MEDS ORDERED: ISOPTIN ONE (11:34)
[2019-06-10 11:35] LABS: PTT 28.9 Seconds (22.3-41.8)
[2019-06-10] MEDS ORDERED: DILAUDID ONE (12:33)
[2019-06-10] MEDS ORDERED: ANESTHESIA PB SET 88 IN 5742 ONE (12:33)
[2019-06-10] MEDS ORDERED: NS 1,000 ML ONE (12:33)
[2019-06-10] MEDS ORDERED: VERSED ONE (12:33)
--- NOTE | 2019-06-10 13:23 | PROGRESS NOTE ---
DATE: 06/10/2019 SUBJECTIVE: The patient is resting comfortably in bed. He will have a cardiac cath done today. PT/INR are elevated, even though he is not on any blood thinners. I repeated the PT/INR today again. I discussed the case with Dr. Marshall. He will receive a dose of vitamin K, and I will request an evaluation by Hematology/Oncology Department. Hopefully this patient can be discharged later today or tomorrow morning after the evaluation by Hematology/Oncology Department. OBJECTIVE: Vital Signs: Temperature 98.4 degrees, pulse 62, respiratory rate 18, blood pressure 143/99, oxygen saturation 99 on room air. HEENT: Head normocephalic. No trauma. PERRLA. Neck: Supple. No JVD. No masses. Central trachea. Chest: Clear to auscultation. No wheezing. No rales. Abdomen: Soft. Extremities: No edema, no clubbing, no cyanosis. Neurological: The patient is awake, alert, oriented. LABORATORY DATA: WBC 4.9, hemoglobin 14.6, hematocrit 42.1, platelets 219,000. PT 25.4, INR 2.24, PTT 28.9. Sodium 138, potassium 3.9, chloride 102, bicarbonate 28, BUN 14, creatinine 1.1, glucose 102, calcium 9.3. Magnesium 2. ASSESSMENT AND PLAN: 1. Chest pain. A stress test done 3 months ago did not show any acute abnormality, but since he is still having chest pain, a cardiac catheterization will be done today. Dr. Marshall has been notified about the PT/INR. 2. Hypertension. Continue with the same treatment. 3. Hyperlipidemia. Continue with Crestor. 4. Coagulopathy. PT/INR elevated with no history of blood thinners. 5. Deep vein thrombosis prophylaxis with sequential compression devices. 6. Likely sleep apnea. This patient will need to be seen by a sleep doctor as an outpatient. 7. Obesity with a body mass index of 36. Aware. cc: Dimitris Hull MD
--- NOTE | 2019-06-10 14:01 | CARDIAC CATH REPORT ---
PROCEDURE NAME: - INDICATION FOR PROCEDURE: Unstable angina. Reversible defect noted in the inferior base on nuclear scanning in February of 2019. PROCEDURES PERFORMED: 1. Left heart catheterization. 2. Left ventriculogram. 3. Selective coronary angiography. PROCEDURE IN DETAIL: Mr. Crowder was brought to the catheterization laboratory in a fasting state. Informed consent was obtained, prepped in the usual fashion. He was anesthetized over the right radial after Ken's test proved adequate. A 5-Ugandan sheath was placed via true Seldinger technique. Radial cocktail was administered. Catheters were introduced. Hemodynamic measurements were made in the ascending thoracic aorta. Coronary angiography performed in multiple views using JL3.5 and JR4 diagnostic catheters. Left heart catheterization was performed using the JR4. At the conclusion of the procedure, all sheaths and catheters were removed. TR band was left inflated at 13 mL of air with good capillary refill. Good hemostasis. 120 mL of Visipaque 5-10 mL of blood loss. No apparent complications. FINDINGS: 1. The left main originates from the left coronary cusp. There is minor luminal irregularities. 2. Left anterior descending originates from the left main. It is a small vessel. There are mild to moderate diffuse 30 to 40 percent disease in the proximal and mid vessel. After the origin of a D2, there is a 40 to 50 percent lesion. The distal vessel is very small, diffuse moderate disease up to around 50%. There are 2 small to moderate diagonals with mild luminal irregularities. 3. Circumflex originates from the left main. There are 2 moderate to large OM's that originate very early. The first is large with minimal luminal irregularities. The second is moderate minor luminal irregularities. After the origin of these 2, there is a 95 to 99 percent discrete lesion. This is in the late proximal vessel. The remainder of the circumflex has minor luminal irregularities. 4. Right coronary originates from the right coronary cusp. There are scattered 30 to 40 percent lesions diffusely until just prior to the PDA where there is a 60 to 70 percent lesion followed by very small vessels distally with severe diffuse disease. 5. Left ventricular pressure is 141/2 with an LVEDP of 16. Aortic blood pressure 141/86 with a mean of 111. 6. Left ventriculogram demonstrates an EF of 55%. There is akinesis of the inferior base as well as hypokinesis of the anterior base. ASSESSMENT: Mr. Crowder is a 44-year-old gentleman who presented with unstable angina symptoms. He had a nuclear scan that demonstrated what appeared to be a reversible defect in the lateral wall with significant chest attenuation. Ejection fraction of 66% on that study. PLAN: Nuclear scanning demonstrated a defect which corresponds to the circumflex lesion. He is having continued symptoms. He was already on metoprolol and amlodipine on presentation. We have escalated the amlodipine. The Toprol cannot be escalated secondary to heart rate limitations. His ramipril was escalated for better control of his blood pressure. He is on aspirin and high- intensity statin therapy. We are pending evaluation with [facility] regarding potential intervention to the circumflex. Further recommendations to follow. cc: Blue Marshall MD
--- NOTE | 2019-06-10 15:06 | EKG Report ---
Test Performed on : 06/10/2019 2:00:34 PM Test Reason : post heart cath Blood Pressure : / mmHG Vent. Rate : 060 BPM Atrial Rate : 060 BPM P-R Int : 172 ms QRS Dur : 094 ms QT Int : 420 ms P-R-T Axes : 066 049 023 degrees QTc Int : 420 ms Normal sinus rhythm. Normal ECG When compared with ECG of 08-JUN-2019 06:35, (Unconfirmed) No significant change was found Confirmed by Lisa CORLEY, Ken Sifuentes ([id number]) on 06/11/2019 9:41:01 AM
--- NOTE | 2019-06-10 15:12 | DISCHARGE SUMMARY ---
ADMISSION DATE: 06/07/2019 DISCHARGE DATE: 06/10/2019 DISCHARGE DIAGNOSES: 1. Chest pain, status post cardiac catheterization that showed a 95 to 99 percent lesion at the level of the circumflex artery. 2. Hypertension. 3. Hyperlipidemia. 4. Coagulopathy, unknown origin, PT/INR elevated. 5. Likely sleep apnea. 6. Obesity with a body mass index of 36. PROCEDURES PERFORMED: Chest x-ray dated 06/07/2019 impression: Negative exam. Cardiac cath done on 06/10/[address] Blue Marshall. CONSULTATIONS: Cardiology Department, Dr. Blue Marshall. HOSPITAL COURSE: A 44-year-old male with a past medical history of hypertension, hyperlipidemia, possible sleep apnea, and obesity presented to the emergency department and was admitted due to chest pain on 06/07/2019 that began 1 or 2 days prior to admission, last , around 1 p.m. As per the patient, the chest pain is intermittent, in the center of the chest with some tightness, no radiation but is associated with shortness of breath and some sensation of indigestion. It has been on and off, mostly with physical activity. He was recently admitted in February 2019 for chest pain as well as uncontrolled hypertension. During that admission, an echocardiogram showed an ejection fraction of 65% with grade 1 diastolic dysfunction. He also had a stress test done that showed a low grade reversible defect, which was chest wall attenuation, large severe grade fixed defect, which we believe is due to a scar. Cardiology was consulted. They felt that the patient was stable after the cardiac workup and he was discharged. He presented again and was evaluated by Dr. Blue Marshall who suggested to do a cardiac cath today that was done and showed that he has a lesion at the level of the circumflex, and there is a lesion of 90 to 99 percent at that level. The left ventriculogram demonstrates an ejection fraction of 55%. There is some akinesis in the inferior base as well as hypokinesis of the anterior base. The plan is to transfer this patient to [facility] to the interventional service regarding potential intervention to the circumflex. In the other hand, today prior to the procedure, we noticed this patient's PT/INR was elevated. We consulted Hematology Oncology Department who asked for some lab work. He is not getting any kind of blood thinners to explain that. Hopefully, after getting the intervention in [facility], he can follow up with the sample collector/oncologist to find out if he has some kind of coagulopathy. PHYSICAL EXAMINATION: Vital signs: Temperature 98.1 degrees, pulse 68, respiratory rate 18, blood pressure 163/100, oxygen saturation 98 on room air. HEENT: Head normocephalic. PERRLA. Neck: Supple. No JVD. No masses. Central trachea. Chest: Clear to auscultation. No wheezing. No rales. Abdomen: Soft, nontender, nondistended. No hepatosplenomegaly. Extremities: No edema, no clubbing, no cyanosis. Neurological: The patient is awake and alert. He is oriented. No focal deficits. LABORATORY: Today WBC is 4.9, hemoglobin 14.6, hematocrit 42.1, platelets 219,000. PTT 25.4, INR 2.2, PTT 28.9. Sodium 138, potassium 3.9, chloride 102, bicarbonate 28, BUN 14, creatinine 1.1, glucose 102, calcium 9.3, magnesium 2. MEDICATIONS DURING THIS HOSPITALIZATION: Acetaminophen 650 mg p.o. q.6 hours as needed, amlodipine 10 mg p.o. daily, aspirin 81 mg p.o. daily, metoprolol succinate/Toprol-XL 50 mg p.o. daily, Zofran 4 mg IV q.6 hours as needed for nausea or vomiting, ramipril 10 mg p.o. daily and Crestor 40 mg p.o. at bedtime. The patient will be discharged to [facility]. Medication will be readjusted by this hospital's practitioner. Follow up with Cardiology after discharge as well as primary doctor. cc: Dimitris Hull MD
[2019-06-10] MEDS: CRESTOR PO SCH (20:34)
[2019-06-11 06:15] LABS: BASO# 0.02 X1000 (0.0-0.2); BASO% 0.4 % (0.0-0.8); EOS# 0.12 X1000 (0.0-0.7); EOS% 2.3 % (0.0-10.0); HEMATOCRIT 41.9 % (42.0-52.0); HEMOGLOBIN 14.4 g/dL (14.0-18.0); LYMPH% 36.8 % (20.5-51.1); MCH 29.2 PG (27-31); MCHC 34.4 g/dL (33-37); MONO# 0.53 X1000 (0.11-0.59); MONO% 10.3 % (1.7-9.3); MPV 10.2 FL (7.4-10.4); NEUT# 2.59 X1000 (1.4-6.5); NEUT% 50.2 % (42.2-75.2); PLT 210 X1000 (130-400); RBC 4.93 XMIL (4.7-6.1); RDW 13.7 % (11.5-14.5); WBC 5.16 X1000 (4.8-10.8)
[2019-06-11 06:26] LABS: INR 2.29; PROTIME 25.8 Seconds (11.0-16.0)
[2019-06-11 06:47] LABS: AGAP 13; BUN 10 mg/dL (8-22); CALCIUM 9.1 mg/dL (8.8-10.2); CHLORIDE 102 mmol/L (98-107); COSMO 278; CREATININE 1.1 mg/dL (0.7-1.2); ESTIMATED GFR > 60; GLUCOSE 87 mg/dL (70-104); MAGNESIUM 1.9 mg/dL (1.5-2.7); POTASSIUM 4.1 mmol/L (3.5-5.1); SODIUM 140 mmol/L (136-145); TCO2 25 mmol/L (25-35)
--- NOTE | 2019-06-11 07:24 | EKG Report ---
Test Performed on : 06/11/2019 07:00:42 AM Test Reason : UA Blood Pressure : / mmHG Vent. Rate : 061 BPM Atrial Rate : 061 BPM P-R Int : 164 ms QRS Dur : 094 ms QT Int : 404 ms P-R-T Axes : 065 028 032 degrees QTc Int : 406 ms Normal sinus rhythm. Normal ECG When compared with ECG of 10-JUN-2019 14:00, (Unconfirmed) No significant change was found Confirmed by Lisa CORLEY, Ken Sifuentes ([id number]) on 06/11/2019 9:41:15 AM
[2019-06-11 07:27] VITALS: BP 172/107
[2019-06-11] MEDS: ALTACE PO SCH (07:40)
[2019-06-11] MEDS: TOPROL XL PO SCH (07:40)
[2019-06-11] MEDS: NORVASC PO SCH (07:40)
== END 2019-06-11 07:45 | disposition short-term general hospital (02) | DRG 287 ==
LOC: ED 22:09 → INTOOBSV 22:10 → SUATTDRO 22:10 → 4N 22:10 → OBSVTOIN 22:10 → 2N 06-10 13:21
PROVIDERS: ATTEND Internal Medicine